=== PATIENT | female | born 1995 | race Caucasian/White ===

== ENCOUNTER → 2016-04-16 | Outpatient (CLI) | payer BC ==
[~2016-04-16] MED LIST: CLEOCIN PO; LORTAB ELIXIR15 ML PO; VISCOUS LIDOCAINE
[2016-04-16 17:00] LABS: ALBUMIN SERUM 5.2 g/dL (3.5-5.0); BILIRUBIN, DIRECT 0.1 mg/dL (0.0-0.2); BILIRUBIN,INDIRECT 0.6 mg/dL (0.0-0.9); BILIRUBIN,TOTAL 0.7 mg/dL (0.2-2.0); PROTEIN TOTAL SERUM 8.1 g/dL (6.0-8.3)
== END | disposition home or self-care (01) ==
LOC: CLAB 16:00
PROVIDERS: Family Medicine
DX: R79.0 Abnormal level of blood mineral (principal)
CPT/HCPCS: 36415; 80076; 82728; 83540; 83550